=== PATIENT | male | born 1990 | race Caucasian/White ===

== ENCOUNTER 2016-09-28 10:12 | Emergency (ER) | payer BC, OTHER ==
[2016-09-28 10:29] VITALS: BP 107/74
--- NOTE | 2016-09-28 11:02 | UC ---
Throat Pain/Nasal Vickey HPI - HPI Summary HPI Summary: ONE WEEK OF COUGH AND SNEEZING, UVULA ENFLAMED AND ENLARGED FOR TWO DAYS. - History of Current Complaint Chief Complaint: UCGeneralIllness Stated Complaint: SORE THROAT Time Seen by Provider: 09/28/16 10:31 Hx Obtained From: Patient Onset/Duration: Gradual Onset, Lasting Days, Still Present Severity: Moderate Cough: None Associated Signs & Symptoms: Positive: Dysphagia, Hoarseness, Fever - Epiglottits Risk Factors Epiglottis Risk Factors: Negative - Allergies/Home Medications Allergies/Adverse Reactions: Allergies Allergy/AdvReac Type Severity Reaction Status Date / Time No Known Allergies Allergy Verified 09/28/16 10:29 PMH/Surg Hx/FS Hx/Imm Hx Previously Healthy: Yes - Surgical History Surgical History: None - Family History Known Family History: Negative: Respiratory Disease - Social History Occupation: Employed Full-time Lives: With Family Alcohol Use: None Substance Use Type: None Smoking Status (MU): Never Smoked Tobacco Review of Systems Constitutional: Fever Skin: Negative ENT: Sore Throat, Other - SWOLLEN PAINFUL UVULA Respiratory: Cough Cardiovascular: Negative Gastrointestinal: Negative Genitourinary: Negative Motor: Negative Neurovascular: Negative Musculoskeletal: Negative Neurological: Negative Psychological: Negative All Other Systems Reviewed And Are Negative: Yes Physical Exam Triage Information Reviewed: Yes Appearance: Well-Appearing, No Pain Distress, Well-Nourished Vital Signs: Initial Vital Signs Temp 97.7 F 09/28/16 10:25 Pulse 85 09/28/16 10:25 Resp 14 09/28/16 10:25 BP 107/74 09/28/16 10:25 Pulse Ox 96 09/28/16 10:25 Vital Signs Reviewed: Yes Eye Exam: Normal ENT: Positive: Pharyngeal erythema, TMs normal, Other: - ERYTHAMA EDEMA OF UVULA Dental Exam: Normal Neck exam: Normal Neck: Positive: Supple, Nontender Respiratory Exam: Normal Respiratory: Positive: Chest non-tender, Lungs clear, Normal breath sounds Cardiovascular Exam: Normal Cardiovascular: Positive: RRR, No Murmur, Pulses Normal Abdominal Exam: Normal Musculoskeletal Exam: Normal Neurological Exam: Normal Psychological Exam: Normal Skin Exam: Normal Throat Pain/Nasal Course/Dx - Differential Dx/Diagnosis Differential Diagnosis/HQI/PQRI: Pharyngitis, Tonsillitis, URI Provider Diagnoses: UVULITIS Discharge - Discharge Plan Condition: Stable Disposition: HOME Prescriptions: Amoxicillin/Clavulanate TAB* [Augmentin TAB 875*] 875 mg PO BID #20 tab Patient Education Materials: Uvulitis (ED) Referrals: [facility]FERR[facility] [Outside] No Primary Care Phys,NOPCP [Primary Care Provider] -
== END 2016-09-28 11:01 | disposition home or self-care (01) ==
LOC: UCCORT 10:12
DX: K12.2 Cellulitis and abscess of mouth (principal); R50.9 Fever, unspecified
CPT/HCPCS: 87651; 99202; G0463

== ENCOUNTER 2017-11-12 11:37 | Emergency (ER) | payer BC ==
[2017-11-12 12:09] VITALS: BP 112/71
--- NOTE | 2017-11-12 12:32 | UC ---
Neck Pain HPI - HPI Summary HPI Summary: pt states the area behind his L ear into the side of his L neck "feels swollen and warm" plus "a little numb" for the past 2 days. he admits to being seated for work all day and often stretches his neck for relief. he denies any hx of injury. he has no headache or numb/tingling or weakness to his arms or legs. he denies having a uri, pain in the spine as well as any dizziness or being off balance. - History of Current Complaint Chief Complaint: UCEar Stated Complaint: NECK COMPLAINT Time Seen by Provider: 11/12/17 12:09 Hx Obtained From: Patient Timing: Constant Pain Intensity: 0 Associated Signs & Symptoms: Positive: Swelling - Risk Factors Meningitis Risk Factors: Negative - Allergies/Home Medications Allergies/Adverse Reactions: Allergies Allergy/AdvReac Type Severity Reaction Status Date / Time No Known Allergies Allergy Verified 11/12/17 12:09 Home Medications: Home Medications NK [No Home Medications Reported] 11/12/17 [History Confirmed 11/12/17] PMH/Surg Hx/FS Hx/Imm Hx Previously Healthy: Yes - Surgical History Surgical History: None - Family History Known Family History: Positive: Cardiac Disease, Other - mental health Negative: Respiratory Disease - Social History Occupation: Employed Full-time Alcohol Use: None Substance Use Type: None Smoking Status (MU): Never Smoked Tobacco - Immunization History Vaccination Up to Date: Yes Review Of Systems Constitutional: Positive: Negative Skin: Positive: Negative Eyes: Positive: Negative ENT: Positive: Negative Respiratory: Positive: Negative Cardiovascular: Positive: Negative Gastrointestinal: Positive: Negative Genitourinary: Positive: Negative Musculoskeletal: Positive: Other: - discomfort behind L ear/ L neck Neurological: Positive: Negative Psychological: Positive: Negative All Other Systems Reviewed And Are Negative: Yes Physical Exam Triage Information Reviewed: Yes Appearance: Well-Appearing Vital Signs: Initial Vital Signs Temp 97.9 F 11/12/17 11:58 Pulse 76 11/12/17 11:58 Resp 18 11/12/17 11:58 BP 112/71 11/12/17 11:58 Pulse Ox 100 11/12/17 11:58 Vital Signs Reviewed: Yes Eyes: Positive: Conjunctiva Clear, Other: - PERRL, EOMI ENT: Positive: Pharynx normal, TMs normal, Other - No auricular adenopathy or mastoid tenderness.. Negative: Nasal congestion, Nasal drainage Neck: Positive: Supple, Nontender, No Lymphadenopathy, Tenderness @ - L trapezius, Other: - No carotid bruits.. Negative: Nuchal Rigidity Respiratory: Positive: Lungs clear, Normal breath sounds Cardiovascular: Positive: RRR, No Murmur Abdomen Description: Positive: Nontender, No Organomegaly, Soft Bowel Sounds: Positive: Present Musculoskeletal: Positive: ROM Intact, No Edema Neurological: Positive: Alert, Other: - CN 2-12 grossly intact, 5/5 strength and 2+ relfexes x4. steady gait. negative rhomberg and pronator drift. performs rapid alternating moves with ease. Psychological: Positive: Normal Response To Family, Age Appropriate Behavior Skin Exam: Normal Skin: Negative: rashes Neck Pain Course/Dx - Course Course Of Treatment: nothing to suggest aneurysm or intracranial pathology. pattern is c/w L trapezius mm spasm. will tx otc aleve and close f/u. - Differential Dx/Diagnosis Provider Diagnoses: L trapezius mm spasm Discharge - Sign-Out/Discharge Documenting (check all that apply): Patient Departure All imaging exams completed and their final reports reviewed: No Studies - Discharge Plan Condition: Stable Disposition: HOME Patient Education Materials: Muscle Spasm (ED) Additional Instructions: FOLLOW UP WITH YOUR PRIMARY CARE AT [facility] IN 3 DAYS FOR A RECHECK. TAKE AN OVER THE COUNTER ALEVE PER LABEL FOR 3 DAYS. - Billing Disposition and Condition Condition: STABLE Disposition: Home
== END 2017-11-12 12:38 | disposition home or self-care (01) ==
LOC: UCCORT 11:37
DX: M62.838 Other muscle spasm (principal)
CPT/HCPCS: 99211; G0463